=== PATIENT | female | born 1965 | race Caucasian/White ===

== ENCOUNTER 2018-07-14 07:29 | Outpatient (CLI) | payer OTHER | END 2018-07-14 07:50 | disposition home or self-care (01) | LOC: SONOGRAMA 07:29 → MAMO-SONO 08:15 | DX: N92.0 Excessive and frequent menstruation with regular cycle (principal); N84.0 Polyp of corpus uteri ==

== ENCOUNTER 2021-09-06 17:35 | Emergency (ER) | payer OTHER ==
[~2021-09-06] VITALS: Ht 162.6 cm; Wt 104.3 kg
[2021-09-06] MEDS ORDERED: SYNTHROID75 MCG PO (17:50)
[2021-09-06] MEDS ORDERED: LIPITOR20 MG PO (17:51)
[2021-09-06] MEDS ORDERED: METRONIDAZOLE500 MG PO (23:27)
[2021-09-06] MEDS ORDERED: CIPRO500 MG PO (23:27)
== END 2021-09-07 01:53 | disposition home or self-care (01) ==
LOC: ER 17:35
DX: K57.92 Diverticulitis of intestine, part unspecified, without perforation or abscess without bleeding (principal)

== ENCOUNTER 2022-01-14 08:49 | Outpatient (CLI) | payer OTHER ==
[~2022-01-14 08:49] MED LIST: CIPRO500 MG PO; LIPITOR20 MG PO; METRONIDAZOLE500 MG PO; SYNTHROID75 MCG PO
== END 2022-01-14 09:02 | disposition home or self-care (01) ==
LOC: SONOGRAMA 08:49
PROVIDERS: ATTEND Obstetrics & Gynecology Gynecology
DX: N84.0 Polyp of corpus uteri (principal)

== ENCOUNTER 2024-12-08 16:55 | Emergency (ER) | payer OTHER ==
[~2024-12-08] VITALS: Ht 162.6 cm; Wt 90.7 kg
[2024-12-08] MEDS ORDERED: SYNTHROID88 MCG PO (17:56)
[2024-12-08] MEDS ORDERED: FAMOTIDINE/PF 20 MG/2 ML VIAL IV PUSH STA (18:17)
[2024-12-08] MEDS ORDERED: ONDANSETRON HCL 2 MG/ML VIAL IV STA (18:18)
[2024-12-08] MEDS ORDERED: ENALAPRILAT DIHYDRATE 1.25 MG/ML VIAL IV STA (18:24)
[2024-12-08 18:51] LABS: HEMATOCRIT 41.8 % (36.0-45.00); HEMOGLOBIN 14.1 g/dL (12.0-15.00); MEAN CELL VOLUME 90.7 fL (80.00-100.00); MEAN CORPUSCULAR HEMOGLOBIN 30.5 pg (27.00-32.0); MEAN CORPUSCULAR HGB CONC 33.6 g/dl (32.0-36.0); PLATELET COUNT 269 K/uL (150-450); RED BLOOD COUNT 4.61 M/uL (4.00-6.00); RED CELL DISTRIBUTION WIDTH 13.8 % (11.5-14.5)
[2024-12-08 19:21] LABS: ALBUMIN 3.9 gm/dL (3.4-5.0); BILIRUBIN TOTAL 0.82 mg/dL (0.3-1.2); CALCIUM 10.1 mg/dL (8.5-10.1); CREATININE SERUM 0.72 mg/dL (0.55-1.02); GFR 83.2; GLOBULINA 3.6 G/DL (2.4-3.5); POTASSIUM 4.36 mEq/L (3.5-5.1); TOTAL PROTEIN 7.5 gm/dL (6.4-8.2)
== END 2024-12-08 21:00 | disposition home or self-care (01) ==
LOC: ER 16:58
PROVIDERS: General Practice
DX: R11.0 Nausea (principal); R07.89 Other chest pain